=== PATIENT | male | born 1945 | race Caucasian/White ===

== ENCOUNTER 2016-05-19 18:30 | Emergency (ER) | payer MEDICARE, OTHER ==
[~2016-05-19 18:30] MED LIST: Aspirin 325 MG TAB ONE; Nitroglycerin 0.4 MG TAB 1 EACH ONE
[2016-05-19 18:54] LABS: #Basophils 0.1 thou/uL (0.0-0.2); #Eosinphils 0.1 thou/uL (0.0-0.7); #Lymphocytes 1.9 thou/uL (1.20-3.40); #Monocytes 0.7 thou/uL (0.11-0.59); #Neutrophils 7.1 thou/uL (1.40-6.50); %Basophils 0.6 % (0.0-1.0); %Eosinophils 0.6 % (0.0-10.0); %Lymphocytes 19.5 % (21.0-51.0); %Neutrophils 72.3 % (42.0-75.0); Hemoglobin 15.2 g/dL (14.0-18.0); Mean Corpuscular HGB CONC 35.2 g/dL (32.0-36.0); Mean Corpuscular Hemoglobin 31.6 pg (27.0-31.0); Mean Corpuscular Volume 89.7 fl (80.0-94.0); Mean Platelet Volume 8.5 fL (7.4-10.4); Platelet Count 157 thou/uL (130-400); RBC Distribution Width 11.8 % (11.5-14.5); Red Blood Cell (RBC) Count 4.82 mill/uL (4.70-6.10); White Blood Cell (WBC) Count 9.8 thou/uL (4.8-10.8)
[2016-05-19] MEDS ORDERED: Metoprolol Tartrate 5 MG/5 ML VIAL ONE (19:00)
[2016-05-19] MEDS ORDERED: Heparin 5,000 UNITS/ML VIAL ONE (19:01)
[2016-05-19] MEDS ORDERED: Heparin 20,000 units/D5W 500 ML ONE (19:01)
[2016-05-19 19:07] LABS: INR-International Normal Ratio 0.9; Prothrombin Time 12.9 SEC (12.0-14.7)
[2016-05-19 19:08] LABS: PTT 22.7 SEC (22.9-36.1)
[2016-05-19 19:15] LABS: ALT (SGPT) 47 U/L (0-55); AST (SGOT) 39 U/L (5-34); Albumin 4.6 g/dL (3.4-4.8); Alkaline Phosphatase 90 U/L (40-150); Anion Gap 25 mmol/L (10-20); BUN (Urea Nitrogen) 24 mg/dL (8.4-25.7); Bilirubin, Total 0.5 mg/dL (0.2-1.2); CK (CPK) 477 U/L (30-200); Calc. Creatinine Clearance 0 mL/min (70-130); Calcium 10.3 mg/dL (7.8-10.44); Carbon Dioxide 17 mmol/L (23-31); Chloride 102 mmol/L (98-107); Estimated GFR-MDRD 50; Globulin 2.4 g/dL (2.4-3.5); Glucose 258 mg/dL (83-110); Sodium 140 mmol/L (136-145)
--- NOTE | 2016-05-19 19:25 | ERRECORD ---
[facility] EMERGENCY RECORD HPI CHEST PAIN (19:07 LLDO) CHIEF COMPLAINT: Patient presents for evaluation of chest pain, ongoing, Denies automated implantable cardioverter-defibrillator event, Patient presents for evaluation of no cardiac hx. just started oral meds for diabetes. hx htn. no cardiac hx. lots of stress at home. at 1730 was unloading truck and began having left anterior chest pains with rad to left shoulder and some to back. heavy, pressure sensation with pronounced sob sensation. pain was 10. first ntg took it to 6, next ntg took it to 2. ecg shows stemi v1-3. HISTORIAN: History provided by patient, came in by pov. LOCATION: Symptoms are localized. QUALITY: Pain is dull in nature, described as aching, described as a sensation of fullness, described as pressure-like, described as heaviness. SEVERITY: Maximum severity of symptoms severe, Currently symptoms are mild. TIME COURSE: Sudden onset of symptoms, Symptoms are improving, are constant. ASSOCIATED WITH: No associated symptoms, Associated with shortness of breath. EXACERBATED BY: Patient's condition exacerbated by nothing, Patient's condition not exacerbated by movement, Patient's condition not exacerbated by palpation of chest. RELIEVED BY: Patient's condition relieved by sublingual nitroglycerin. RISK FACTORS: Coronary artery disease risk factors, include diabetes, include high cholesterol, include hypertension, Thoracic aortic dissection risk factors, include hypertension, Pulmonary embolism risk factors, not applicable to this patient. HEART SCORE: Patients history is Highly Suspicious (2), Patients ECG has Significant ST - Deviation (2), Patients age is equal to or greater than 65 years (2), Patient has equal to or greater than 3 risk factors or history of atherosclerotic disease (2), Total 8. WELLS CRITERIA FOR PE: Total 0. ROS CONSTITUTIONAL: Negative constitutional review of systems. (19:13 LLDO) EYES: Negative eye review of systems, Historian denies eye pain, denies eye redness, denies eye discharge. (19:15 LLDO) ENT: Negative ears, nose, throat review of systems, Historian denies otalgia, denies rhinorrhea, denies sinus pain, denies sore throat. (19:15 LLDO) CARDIOVASCULAR: Historian reports chest pain, radiation to, Historian reports dyspnea on exertion. (19:13 LLDO) &a-1R&a+25V*p+0X*[id number]*c202B*c15G*c2P*p-0X&a-25V&a+1R Name: Luis F Chapman II : 1945 M70 MedRec: [id number] AcctNum: [id number] Prepared: Sat May 20, 2016 01:25 by Interface Page 1 of 4 pMD [facility] EMERGENCY RECORD RESPIRATORY: Historian reports shortness of breath. (19:13 LLDO) GI: Negative gastrointestinal review of systems, Historian denies abdominal pain, denies constipation, denies diarrhea, denies nausea, denies vomiting. (19:15 LLDO) MUSCULOSKELETAL: Negative musculoskeletal review of systems, Historian denies arthralgias, denies fall, denies injury, denies myalgias. (19:15 LLDO) NEUROLOGIC: Negative neurologic review of systems, Historian denies confusion, denies focal weakness, denies mental status changes, denies sensory changes. (19:15 LLDO) HEMO/LYMPHATIC: Normal hematologic/lymphatic system review, Historian denies abnormal blood clotting, denies gum bleeding, denies petechiae. (19:15 LLDO) ALLERGIC/IMMUNOLOGIC: Normal allergy/immunologic system review, Historian denies eczema, denies environmental allergies, denies food allergies. (19:15 LLDO) PSYCHIATRIC: Historian reports anxiety. (19:13 LLDO) NOTES: All systems reviewed, negative except as described above. (19:13 LLDO) PAST MEDICAL HISTORY (19:14 LLDO) NOTES: Nursing records reviewed, Agree with nursing records, Medication list reviewed. KNOWN ALLERGIES No Known Allergies (Unconfirmed) CURRENT MEDICATIONS No recorded medications VITAL SIGNS VITAL SIGNS: BP: 163/92, Pulse: 85, Resp: 22, Temp: 98.2 (Oral), Pain: 9 (Constant), O2 sat: 100 on Room Air, Time: 05/19/2016 18:32. (18:32 LWAL) BP: 118/60, Pulse: 88, Resp: 22, Pain: 10, O2 sat: 98 on Room Air, Time: 05/19/2016 19:00. (19:00 LWAL) BP: 134/56, Pulse: 98, Resp: 20, Pain: 2, O2 sat: 97 on Room Air, Time: 05/19/2016 19:05. (19:05 LWAL) BP: 120/73, Pulse: 97, Resp: 20, Pain: 2, O2 sat: 98 on Room Air, Time: 05/19/2016 19:15. (19:15 LWAL) BP: 142/89, Pulse: 91, Resp: 20, Pain: 2, O2 sat: 99 on Room Air, Time: 05/19/2016 19:22. (19:22 LWAL) PHYSICAL EXAM CONSTITUTIONAL: Vital Signs Reviewed, Patient afebrile, Pulse normal, Blood pressure, hypertensive, Respiratory rate normal, Patient appears non toxic, Patient appears, in moderate pain distress, Patient alert and oriented to person, place and time, Nursing notes reviewed. (19:13 LLDO) &a-1R&a+25V*p+0X*[id number]*c202B*c15G*c2P*p-0X&a-25V&a+1R Name: Luis F Chapman II : 1945 M70 MedRec: [id number] AcctNum: [id number] Prepared: Sat May 20, 2016 01:25 by Interface Page 2 of 4 pMD [facility] EMERGENCY RECORD HEAD: Head exam normal, Head exam included findings of head atraumatic, normocephalic. (19:15 LLDO) EYES: Eye exam normal, Eye exam included findings of eyelids normal to inspection, Pupils equally round and reactive to light, Extraocular muscles intact. (19:15 LLDO) ENT: ENT exam normal, Ear exam normal, Nose exam normal. (19:15 LLDO) NECK: Neck exam normal, Neck exam included findings of normal range of motion, Trachea midline, no meningeal signs, no tenderness. (19:15 LLDO) RESPIRATORY CHEST: Respiratory and chest exam normal, Respiratory exam included findings of no respiratory distress, Breath sounds clear, Chest exam included findings of chest movement symmetrical, Chest expansion equal. (19:15 LLDO) CARDIOVASCULAR: Cardiovascular assessment normal, Cardiovascular exam included findings of heart rate regular rate and rhythm, Heart sounds normal. (19:15 LLDO) ABDOMEN MALE: Abdominal exam normal, Abdominal exam included findings of abdomen nontender, Bowel sounds normal, no peritoneal signs. (19:15 LLDO) BACK: Back exam normal, Back exam included findings of normal inspection, range of motion normal. (19:15 LLDO) UPPER EXTREMITY: Upper extremity exam normal, Upper extremity exam included findings of inspection normal, Range of motion normal. (19:15 LLDO) LOWER EXTREMITY: Lower extremity exam normal, Lower extremity exam included findings of inspection normal, Range of motion normal. (19:15 LLDO) NEURO: Neuro exam normal, Neuro exam findings include patient oriented to person, place and time, Speech normal, Miesha coma scale 15. (19:15 LLDO) SKIN: very mildly diaphoretic, but better than on arrival. (19:13 LLDO) PSYCHIATRIC: Psychiatric exam normal, Psychiatric exam included findings of patient oriented to person place and time, Normal affect, Judgment normal. (19:15 LLDO) MEDICATION ADMINISTRATION SUMMARY Drug Name: Nitroglycerin Microdrip IV Set, Dose Ordered: 10 mcg/min, Route: IV Fluid Infusion, Status: Ordered, Time: 19:04 05/19/2016, Drug Name: *Lopressor intravenous, Dose Ordered: 5 mg, Route: IV Push, Status: Given, Time: 19:15 05/19/2016, Drug Name: heparin, porcine (PF) injection, Dose Ordered: 1,000 units/hr, Route: IV Fluid Infusion, Status: Given, Time: 19:13 05/19/2016, Drug Name: heparin, porcine (PF) injection, Dose Ordered: 5000 units, Route: IV Push, Status: Given, Time: 19:07 05/19/2016, Drug Name: *nitroglycerin sublingual, Dose Ordered: 1 tab(s), Route: Oral, Status: Given, Time: 18:55 05/19/2016, &a-1R&a+25V*p+0X*[id number]*c202B*c15G*c2P*p-0X&a-25V&a+1R Name: Ari Luis Faryan Dao II : 1945 M70 MedRec: [id number] AcctNum: [id number] Prepared: Sat May 20, 2016 01:25 by Interface Page 3 of 4 pMD [facility] EMERGENCY RECORD Drug Name: *nitroglycerin sublingual, Dose Ordered: 1 tab(s), Route: Oral, Status: Given, Time: 18:43 05/19/2016, Drug Name: aspirin oral, Dose Ordered: 325 mg, Route: Oral, Status: Given, Time: 18:43 05/19/2016, *Additional information available in notes, Detailed record available in Medication Service section. DOCTOR NOTES (19:15 LLDO) TEXT: spoke to dr haynes, hotel server, who said not to lyse but give nitro and Lopressor and fly pt. pt accepted to ed by dr. latif (sp?). PROBLEM LIST No recorded problems DIAGNOSIS FINAL: PRIMARY: ST ELEVATION MYOCARDIAL INFARCT. (19:18 LLDO) PRIMARY: ST ELEVATION MYOCARDIAL INFARCT, ADDITIONAL: Hypertension, Type 2 Diabetes mellitus (NIDDM) - controlled. (19:20 LLDO) PRESCRIPTION No recorded prescriptions DISPOSITION PATIENT: Disposition Type: Transfer, Disposition: Transfer to [facility]. (19:18 LLDO) Disposition Transport: Helicopter, Condition: Guarded, Patient left the department. (19:27 LWAL) [place]: LLDO=MD Cher, Karan LWAL=[place], [facility] &a-1R&a+25V*p+0X*x1125X*c202B*c15G*c2P*p-0X&a-25V&a+1R Name: Luis F Chapman RAYMUNDO : 1945 M70 MedRec: [id number] AcctNum: [id number] Prepared: Isma May 20, 2016 01:25 by Interface Page 4 of 4 pMD MTDD
--- NOTE | 2016-05-19 19:31 | PICIS ---
[facility] EMERGENCY RECORD COMMUNICATIONS COMMUNICATIONS: Other notification, Name LAI, contacted at [facility], Reason for notification REQUEST TO TRANSFER, AUTO LAUNCH PHI. (18:46 EROG) Other notification, Name DR. LANDRUM, contacted at [facility], Reason for notification DOC TO DOC FOR ACCEPTANCE. (18:51 EROG) Other notification, Name DR. HENSLEY, contacted at [facility], Reason for notification CARDIOLOGY CONSULT. (18:53 EROG) Nursing production support supervisor, contacted at [facility], Person contacted [place], Reason for notification RECEIVED AD ACCEPTANCE FOR TRANSFER. (18:51 EROG) TRIAGE (SunMay 19, 2016 18:35 LWAL) PATIENT: NAME: Luis F Chapman II, AGE: 70, GENDER: male, : Sun1945, TIME OF GREET: SunMay 19, 2016 18:30, PREFERRED LANGUAGE: British, RACE: WHITE, ETHNICITY: Not or , ECODE BILLING MAP: [facility], SSN: [id number], Zip Code: [address], KG WEIGHT: 101.15, PHONE: , , , PERSON ID: [id number], PCP: GLEN AGUIRRE. (SunMay 19, 2016 18:35 LWAL) TRIAGE NOTES: SOB, CHEST PAIN. (SunMay 19, 2016 18:35 LWAL) COMPLAINT: SOB,CHEST PAIN. (SunMay 19, 2016 18:35 LWAL) ADMISSION: URGENCY: 3 Urgent, ADMISSION SOURCE: Home, TRANSPORT: CAR, BED: ED -05. (SunMay 19, 2016 18:35 LWAL) PAIN: Patient complains of pain described as, crushing, on a scale 0-10 patient rates pain as 10, Location middle of chest, Pain is constant, Notes: increased shortness of breath. (18:35 LWAL) SIRS SCORING: Heart Rate 55-109 (0), Temp range 96.8-101.1 (0), respiratory rate 12-24 (0), Mental Status altered: no (0), Total SIRS Score 0, Infection or Suspected Infection: No. (18:35 LWAL) TRIAGE SCREENING: Patient denies suicidal ideation, Patient denies presence of domestic violence. (18:35 LWAL) PROVIDERS: TRIAGE NURSE: Sonja White RN. (SunMay 19, 2016 18:35 LWAL) VITAL SIGNS: BP 163/92, Pulse 85, Resp 22, Temp 98.2, (Oral), Pain 9, (Constant), O2 Sat 100, on Room Air, Time 05/19/2016 18:32. (18:32 LWAL) KNOWN ALLERGIES No Known Allergies (Unconfirmed) CURRENT MEDICATIONS No recorded medications VITAL SIGNS VITAL SIGNS: BP: 163/92, Pulse: 85, Resp: 22, Temp: 98.2 (Oral), Pain: 9 (Constant), O2 sat: 100 on Room Air, Time: 05/19/2016 18:32. &a-1R&a+25V*p+0X*q2956G*c202B*c15G*c2P*p-0X&a-25V&a+1R Name: Luis F Chapman II : 1945 M70 MedRec: [id number] AcctNum: [id number] Prepared: Sat May 20, 2016 01:30 by Interface Page 1 of 12 pMD [facility] EMERGENCY RECORD (18:32 LWAL) BP: 118/60, Pulse: 88, Resp: 22, Pain: 10, O2 sat: 98 on Room Air, Time: 05/19/2016 19:00. (19:00 LWAL) BP: 134/56, Pulse: 98, Resp: 20, Pain: 2, O2 sat: 97 on Room Air, Time: 05/19/2016 19:05. (19:05 LWAL) BP: 120/73, Pulse: 97, Resp: 20, Pain: 2, O2 sat: 98 on Room Air, Time: 05/19/2016 19:15. (19:15 LWAL) BP: 142/89, Pulse: 91, Resp: 20, Pain: 2, O2 sat: 99 on Room Air, Time: 05/19/2016 19:22. (19:22 LWAL) NURSING ASSESSMENT: CARDIOVASCULAR (18:35 LWAL) CONSTITUTIONAL: Patient arrives ambulatory, Gait steady, History obtained from patient, Patient appears, in distress due to pain, in respiratory distress, chest pain, Patient cooperative, Oriented to person, place and time, Skin warm, Skin, clammy, Skin, pale in color, Mucous membranes pink, Mucous membranes moist, Patient is well-groomed, Patient complains of chest pain, sob, [place] at 1730 [place] Pt has had a stressful day and week. Pt is pale, clammy, and unable to take a deep breath. PAIN: cramping pain, crushing pain, midsternal, on a scale 0-10 patient rates pain as 10. CARDIOVASCULAR: Cardiovascular assessment findings include heart rate normal. RESPIRATORY/CHEST: Breath sounds clear, Respiratory assessment findings include respiratory effort, labored, shallow, Respirations regular, Conversing normally, Neck and chest exam findings include trachea midline, Chest expansion equal, Chest movement symmetrical. NOTES: Patient tolerated procedure well. SAFETY: Side rails up, Cart/Stretcher in lowest position, Call light within reach, Hospital ID band on. NURSING PROCEDURE: BEDSIDE RADIOLOGY (19:00 [facility]) PATIENT IDENTIFIER: Patient actively involved in identification process, Patient's identity verified by patient stating name, Patient's identity verified by patient stating date. BEDSIDE RADIOLOGY: Portable chest x-ray performed. NOTES: Patient tolerated procedure well. SAFETY: Side rails up, Cart/Stretcher in lowest position, Family at bedside, Call light within reach, Hospital ID band on. NURSING PROCEDURE: UTILITY WORKER (18:37 LWAL) PATIENT IDENTIFIER: Patient actively involved in identification process, Patient's identity verified by patient stating name, Patient's identity verified by hospital ID bracelet. UTILITY WORKER: Cardiac monitoring indicated for complaint of chest pain, Patient placed on night monitor, Patient placed on &a-1R&a+25V*p+0X*j3174A*c202B*c15G*c2P*p-0X&a-25V&a+1R Name: Luis F Chapman RAYMUNDO : 1945 M70 MedRec: [id number] AcctNum: [id number] Prepared: Sat May 20, 2016 01:30 by Interface Page 2 of 12 pMD [facility] EMERGENCY RECORD non-invasive blood pressure monitor, Patient placed on continuous pulse oximetry, Adult/pediatric oxisensor applied. NOTES: Patient tolerated procedure well. SAFETY: Side rails up, Cart/Stretcher in lowest position, Hospital ID band on. NURSING PROCEDURE: EKG CHART (18:36 LWAL) PATIENT IDENTIFIER: Patient actively involved in identification process, Patient's identity verified by patient stating name, Patient's identity verified by hospital ID bracelet. EKG: EKG indicated for complaint of chest pain, 12 lead EKG performed on the left chest, done by GRETCHEN ALONZO, first EKG. FOLLOW-UP: After procedure, EKG for interpretation given to Dr. CALIX. SAFETY: Side rails up, Cart/Stretcher in lowest position, Family at bedside, Call light within reach, Hospital ID band on. NURSING PROCEDURE: IV PATIENT IDENITIFIER: Patient actively involved in identification process, Patient's identity verified by patient stating name, Patient's identity verified by hospital ID bracelet. (18:38 LWAL) IV SITE 1: IV therapy indicated for hydration, IV therapy indicated for medication administration, IV established, to the right antecubital, using an 18 gauge catheter, Saline lock established, Labs drawn at time of placement, labeled in the presence of the patient and sent to lab. (18:38 LWAL) FOLLOW-UP SITE 1: After procedure, no drainage at IV site, After procedure, no swelling at IV site, After procedure, no redness at IV site, Notes: IV PATENT AT TIME OF TRANSFER. NO S/SOF INFILTRATION NOTED. (19:23 LWAL) NURSING PROCEDURE: TRANSFER (19:23 LWAL) TRANSFER: Reason for transfer need for specialized care, Diagnosis: ACUTE STEMI, Accepting institution: [facility], Accepting physician: DR.GRAY OLIVER- CARDIO, Referring physician: YOGI, Transported by helicopter, [facility], Report called to receiving facility, RON, Provided opportunity to answer questions, Summary of Care printed, Copy of patient record prepared for receiving facility, Patient consent for transfer signed, Family member contacted, SPOUSE BY PT. BELONGINGS: Belongings remain with patient, Valuables remain with patient. EQUIPMENT WITH PATIENT: Equipment with patient at time of transfer night monitor, Saline lock intact and patent at time of transfer. NOTES: Patient tolerated procedure well. SAFETY: Side rails up, Cart/Stretcher in lowest position, Call light within reach, Hospital ID band on. ORDER DETAILS &a-1R&a+25V*p+0X*m1859F*c202B*c15G*c2P*p-0X&a-25V&a+1R Name: Luis F Chapman II : 1945 M70 MedRec: [id number] AcctNum: [id number] Prepared: [facility] [[email or web address] May 20, 2016 01:30 by Interface Page 3 of 12 D [facility] EMERGENCY RECORD Order Name: B type Natriuretic Peptide, Status: Active, Time: 18:46 05/19/2016, User: KATI, - Ordered for: MD Calix Lloyd, - Entered by: MD Calix Lloyd - SunMay 19, 2016 18:46, - Quantity: 1, Order Name: UTILITY WORKER ED, Status: Done, Time: 18:55 05/19/2016, User: BANG, - Ordered for: MD Calix Lloyd, - Entered by: MD Calix Lloyd - SunMay 19, 2016 18:46, - Quantity: 1, Order Name: Cardiac Profile w/CKMB & Troponin - I, Status: Active, Time: 18:46 05/19/2016, User: KATI, - Ordered for: MD Calix Lloyd, - Entered by: MD Calix Lloyd - SunMay 19, 2016 18:46, - Quantity: 1, Order Name: CBC with Differential, Status: Active, Time: 18:46 05/19/2016, User: LL, - Ordered for: MD Calix Lloyd, - Entered by: MD Calix Lloyd - SunMay 19, 2016 18:46, - Quantity: 1, Order Name: CK (CPK), Status: Active, Time: 18:46 05/19/2016, User: KATI, - Ordered for: MD Calix Lloyd, - Entered by: MD Calix Lloyd - SunMay 19, 2016 18:46, - Quantity: 1, Order Name: Comprehensive Metabolic Panel, Status: Active, Time: 18:46 05/19/2016, User: LL, - Ordered for: MD Calix Lloyd, - Entered by: MD Calix Lloyd - SunMay 19, 2016 18:46, - Quantity: 1, Order Name: EKG 12 Lead in Emergency Room, Status: Active, Time: 18:46 05/19/2016, User: LLDO, - Ordered for: MD Calix Lloyd, - Entered by: MD Calix Lloyd - SunMay 19, 2016 18:46, - Quantity: 1, Order Name: ERRT Oxygen Usage ER, Status: Active, Time: 18:46 05/19/2016, User: LLDO, - Ordered for: MD Calix Lloyd, - Entered by: MD Calix Lloyd - Mounika May 19, 2016 18:46, - Quantity: 1, Order Name: ERRT Pulse Oximeter ER, Status: Active, Time: 18:46 05/19/2016, User: LLDO, - Ordered for: MD Calix Lloyd, - Entered by: MD Calix Lloyd - SunMay 19, 2016 18:46, - Quantity: 1, Order Name: Magnesium, Status: Active, Time: 18:46 05/19/2016, User: LLDO, - Ordered for: MD Calix Lloyd, - Entered by: MD Calix Lloyd - SunMay 19, 2016 18:46, &a-1R&a+25V*p+0X*b7957G*c202B*c15G*c2P*p-0X&a-25V&a+1R Name: Luis F Chapman II : 1945 M70 MedRec: [id number] AcctNum: [id number] Prepared: [facility] [[email or web address] May 20, 2016 01:30 by Interface Page 4 of 12 D [facility] EMERGENCY RECORD - Quantity: 1, Order Name: Protime with INR, Status: Active, Time: 18:46 05/19/2016, User: LLDO, - Ordered for: MD Calix Lloyd, - Entered by: MD Calix Lloyd - SunMay 19, 2016 18:46, - Quantity: 1, Order Name: PTT, Status: Active, Time: 18:46 05/19/2016, User: LLDO, - Ordered for: MD Calix Lloyd, - Entered by: MD Calix Lloyd - SunMay 19, 2016 18:46, - Quantity: 1, Order Name: SALINE LOCK, Status: Done, Time: 18:55 05/19/2016, User: SFRE, - Ordered for: MD Calix Lloyd, - Entered by: MD Calix Lloyd - SunMay 19, 2016 18:46, - Quantity: 1, Order Name: XR Chest 1 View Portable, Status: Active, Time: 18:46 05/19/2016, User: KATI, - Ordered for: MD Calix Lloyd, - Entered by: MD Calix Lloyd - SunMay 19, 2016 18:46, - Quantity: 1. MEDICATION ADMINISTRATION SUMMARY Drug Name: Nitroglycerin Microdrip IV Set, Dose Ordered: 10 mcg/min, Route: IV Fluid Infusion, Status: Ordered, Time: 19:04 05/19/2016, Drug Name: *Lopressor intravenous, Dose Ordered: 5 mg, Route: IV Push, Status: Given, Time: 19:15 05/19/2016, Drug Name: heparin, porcine (PF) injection, Dose Ordered: 1,000 units/hr, Route: IV Fluid Infusion, Status: Given, Time: 19:13 05/19/2016, Drug Name: heparin, porcine (PF) injection, Dose Ordered: 5000 units, Route: IV Push, Status: Given, Time: 19:07 05/19/2016, Drug Name: *nitroglycerin sublingual, Dose Ordered: 1 tab(s), Route: Oral, Status: Given, Time: 18:55 05/19/2016, Drug Name: *nitroglycerin sublingual, Dose Ordered: 1 tab(s), Route: Oral, Status: Given, Time: 18:43 05/19/2016, Drug Name: aspirin oral, Dose Ordered: 325 mg, Route: Oral, Status: Given, Time: 18:43 05/19/2016, *Additional information available in notes, Detailed record available in Medication Service section. MEDICATION SERVICE aspirin oral: Order: aspirin oral (aspirin) - Dose: 325 mg : Oral Schedule: Now Ordered by: Karan Calix MD Entered by: Karan Calix MD SunMay 19, 2016 19:03 Documented as given by: Sonja White RN SunMay 19, 2016 18:43 Patient, Medication, Dose, Route and Time verified prior to administration. Amount given: 325 mg, Site: Medication administered P.O., Correct &a-1R&a+25V*p+0X*w8853L*c202B*c15G*c2P*p-0X&a-25V&a+1R Name: Luis F Chapman II : 1945 M70 MedRec: [id number] AcctNum: [id number] Prepared: [facility] [[email or web address] May 20, 2016 01:30 by Interface Page 5 of 12 pMD [facility] EMERGENCY RECORD patient, time, route, dose and medication confirmed prior to administration, Patient advised of actions and side-effects prior to administration, Allergies confirmed and medications reviewed prior to administration, Patient in position of comfort, Side rails up, Cart in lowest position. heparin, porcine (PF) injection: Order: heparin, porcine (PF) injection (heparin sodium,porcine/preservative free) - Dose: 5000 units : IV Push Schedule: Now Ordered by: Karan Calix MD Entered by: Karan Calix MD SunMay 19, 2016 19:02 Documented as given by: Sonja White RN SunMay 19, 2016 19:07 Patient, Medication, Dose, Route and Time verified prior to administration. Amount given: 5000 units, IV SITE #1 IVP, initial medication, Slowly, Catheter placement confirmed via flush prior to administration, IV site without signs or symptoms of infiltration during medication administration, No swelling during administration, No drainage during administration, IV flushed after administration, Correct patient, time, route, dose and medication confirmed prior to administration, Patient advised of actions and side-effects prior to administration, Allergies confirmed and medications reviewed prior to administration, Patient in position of comfort, Side rails up, Cart in lowest position. heparin, porcine (PF) injection: Order: heparin, porcine (PF) injection (heparin sodium,porcine/preservative free) - Dose: 1,000 units/hr : IV Fluid Infusion Schedule: Now Ordered by: Karan Calix MD Entered by: Karan Calix MD SunMay 19, 2016 19:02 Documented as given by: Sonja White RN SunMay 19, 2016 19:13 Patient, Medication, Dose, Route and Time verified prior to administration. Amount given: 25 ml/hr, IV SITE #1 IVPB or drip, initial infusion, Catheter placement confirmed via flush prior to administration, IV site without signs or symptoms of infiltration during medication administration, No swelling during administration, No drainage during administration, IV flushed after administration, Correct patient, time, route, dose and medication confirmed prior to administration, Patient advised of actions and side-effects prior to administration, Allergies confirmed and medications reviewed prior to administration, Patient in position of comfort, Side rails up, Cart in lowest position, Heparin maintenance bolus 1000 units/hr or 25ml/hr. : Follow Up : No signs or symptoms of allergic reaction noted, _IV SITE #1:_, IV fluid infusion continued upon transfer from emergency department, on SunMay 19, 2016 19:23, 10 minutes, ., Advised not to ambulate without assistance, Patient in position of comfort, Side rails up, Cart in lowest position. (19:23 LWAL) Lopressor intravenous: Order: Lopressor intravenous (metoprolol tartrate) - Dose: 5 mg : IV Push &a-1R&a+25V*p+0X*g4704C*c202B*c15G*c2P*p-0X&a-25V&a+1R Name: Luis F Chapman II : 1945 M70 MedRec: [id number] AcctNum: [id number] Prepared: [facility] [[email or web address] May 20, 2016 01:30 by Interface Page 6 of 12 [facility] EMERGENCY RECORD Schedule: Now Notes: total 3 doses at 5 min intervals Ordered by: Karan Calix MD Entered by: Karan Calix MD SunMay 19, 2016 19:01 Documented as given by: Sonja White RN SunMay 19, 2016 19:15 Patient, Medication, Dose, Route and Time verified prior to administration. Amount given: 5 mg, IV SITE #1 IVP, subsequent different medication, Slowly, Catheter placement confirmed via flush prior to administration, IV site without signs or symptoms of infiltration during medication administration, No swelling during administration, No drainage during administration, IV flushed after administration, Correct patient, time, route, dose and medication confirmed prior to administration, Patient advised of actions and side-effects prior to administration, Allergies confirmed and medications reviewed prior to administration, Patient in position of comfort, Side rails up, Cart in lowest position. Nitroglycerin Microdrip IV Set: Order: Nitroglycerin Microdrip IV Set (IV administration set) - Dose: 10 mcg/min : IV Fluid Infusion Schedule: Now Ordered by: Karan Calix MD Entered by: Karan Calix MD SunMay 19, 2016 19:04 . nitroglycerin sublingual: Order: nitroglycerin sublingual (nitroglycerin) - Dose: 1 tab(s) : Oral Schedule: Every 5 minutes Repeat: 3 DOSES Notes: UNTIL PAIN GONE OR SBP DROPS BELOW 105 Ordered by: Karan Calix MD Entered by: Karan Calix MD SunMay 19, 2016 19:04 Documented as given by: Sonja White RN SunMay 19, 2016 18:43 Patient, Medication, Dose, Route and Time verified prior to administration. Amount given: 0.4 mg, Site: Medication administered S.L., Correct patient, time, route, dose and medication confirmed prior to administration, Patient advised of actions and side-effects prior to administration, Allergies confirmed and medications reviewed prior to administration, Patient in position of comfort, Side rails up, Cart in lowest position. nitroglycerin sublingual: Order: nitroglycerin sublingual (nitroglycerin) - Dose: 1 tab(s) : Oral Schedule: Every 5 minutes Repeat: 3 DOSES Notes: UNTIL PAIN GONE OR SBP DROPS BELOW 105 Ordered by: Karan Calix MD Entered by: Sonja White RN SunMay 19, 2016 19:36 Documented as given by: Sonja White RN SunMay 19, 2016 18:55 Patient, Medication, Dose, Route and Time verified prior to administration. Amount given: 0.4 mg, Site: Medication administered S.L., Correct patient, time, route, dose and medication confirmed prior to administration, Patient advised of actions and side-effects prior to &a-1R&a+25V*p+0X*n7626C*c202B*c15G*c2P*p-0X&a-25V&a+1R Name: Luis F Chapman RAYMUNDO : 1945 M70 MedRec: [id number] AcctNum: [id number] Prepared: Sat May 20, 2016 01:30 by Interface Page 7 of 12 pMD [facility] EMERGENCY RECORD administration, Allergies confirmed and medications reviewed prior to administration, Patient in position of comfort, Side rails up, Cart in lowest position. HPI CHEST PAIN (19:07 LLDO) CHIEF COMPLAINT: Patient presents for evaluation of chest pain, ongoing, Denies automated implantable cardioverter-defibrillator event, Patient presents for evaluation of no cardiac hx. just started oral meds for diabetes. hx htn. no cardiac hx. lots of stress at home. at 1730 was unloading truck and began having left anterior chest pains with rad to left shoulder and some to back. heavy, pressure sensation with pronounced sob sensation. pain was 10. first ntg took it to 6, next ntg took it to 2. ecg shows stemi v1-3. HISTORIAN: History provided by patient, came in by pov. LOCATION: Symptoms are localized. QUALITY: Pain is dull in nature, described as aching, described as a sensation of fullness, described as pressure-like, described as heaviness. SEVERITY: Maximum severity of symptoms severe, Currently symptoms are mild. TIME COURSE: Sudden onset of symptoms, Symptoms are improving, are constant. ASSOCIATED WITH: No associated symptoms, Associated with shortness of breath. EXACERBATED BY: Patient's condition exacerbated by nothing, Patient's condition not exacerbated by movement, Patient's condition not exacerbated by palpation of chest. RELIEVED BY: Patient's condition relieved by sublingual nitroglycerin. RISK FACTORS: Coronary artery disease risk factors, include diabetes, include high cholesterol, include hypertension, Thoracic aortic dissection risk factors, include hypertension, Pulmonary embolism risk factors, not applicable to this patient. HEART SCORE: Patients history is Highly Suspicious (2), Patients ECG has Significant ST - Deviation (2), Patients age is equal to or greater than 65 years (2), Patient has equal to or greater than 3 risk factors or history of atherosclerotic disease (2), Total 8. WELLS CRITERIA FOR PE: Total 0. ROS CONSTITUTIONAL: Negative constitutional review of systems. (19:13 LLDO) EYES: Negative eye review of systems, Historian denies eye pain, denies eye redness, denies eye discharge. (19:15 LLDO) ENT: Negative ears, nose, throat review of systems, Historian denies otalgia, denies rhinorrhea, denies sinus pain, denies sore &a-1R&a+25V*p+0X*m1700H*c202B*c15G*c2P*p-0X&a-25V&a+1R Name: Luis F Chapman II : 1945 M70 MedRec: [id number] AcctNum: [id number] Prepared: Isma May 20, 2016 01:30 by Interface Page 8 of 12 pMD [facility] EMERGENCY RECORD throat. (19:15 LLDO) CARDIOVASCULAR: Historian reports chest pain, radiation to, Historian reports dyspnea on exertion. (19:13 LLDO) RESPIRATORY: Historian reports shortness of breath. (19:13 LLDO) GI: Negative gastrointestinal review of systems, Historian denies abdominal pain, denies constipation, denies diarrhea, denies nausea, denies vomiting. (19:15 LLDO) MUSCULOSKELETAL: Negative musculoskeletal review of systems, Historian denies arthralgias, denies fall, denies injury, denies myalgias. (19:15 LLDO) NEUROLOGIC: Negative neurologic review of systems, Historian denies confusion, denies focal weakness, denies mental status changes, denies sensory changes. (19:15 LLDO) HEMO/LYMPHATIC: Normal hematologic/lymphatic system review, Historian denies abnormal blood clotting, denies gum bleeding, denies petechiae. (19:15 LLDO) ALLERGIC/IMMUNOLOGIC: Normal allergy/immunologic system review, Historian denies eczema, denies environmental allergies, denies food allergies. (19:15 LLDO) PSYCHIATRIC: Historian reports anxiety. (19:13 LLDO) NOTES: All systems reviewed, negative except as described above. (19:13 LLDO) PAST MEDICAL HISTORY (19:14 LLDO) NOTES: Nursing records reviewed, Agree with nursing records, Medication list reviewed. PHYSICAL EXAM CONSTITUTIONAL: Vital Signs Reviewed, Patient afebrile, Pulse normal, Blood pressure, hypertensive, Respiratory rate normal, Patient appears non toxic, Patient appears, in moderate pain distress, Patient alert and oriented to person, place and time, Nursing notes reviewed. (19:13 LLDO) HEAD: Head exam normal, Head exam included findings of head atraumatic, normocephalic. (19:15 LLDO) EYES: Eye exam normal, Eye exam included findings of eyelids normal to inspection, Pupils equally round and reactive to light, Extraocular muscles intact. (19:15 LLDO) ENT: ENT exam normal, Ear exam normal, Nose exam normal. (19:15 LLDO) NECK: Neck exam normal, Neck exam included findings of normal range of motion, Trachea midline, no meningeal signs, no tenderness. (19:15 LLDO) RESPIRATORY CHEST: Respiratory and chest exam normal, Respiratory exam included findings of no respiratory distress, Breath sounds clear, Chest exam included findings of chest movement symmetrical, Chest expansion equal. (19:15 LLDO) CARDIOVASCULAR: Cardiovascular assessment normal, Cardiovascular &a-1R&a+25V*p+0X*t7866F*c202B*c15G*c2P*p-0X&a-25V&a+1R Name: Luis F Chapman II : 1945 M70 MedRec: [id number] AcctNum: [id number] Prepared: Sat May 20, 2016 01:30 by Interface Page 9 of 12 pMD [facility] EMERGENCY RECORD exam included findings of heart rate regular rate and rhythm, Heart sounds normal. (19:15 LLDO) ABDOMEN MALE: Abdominal exam normal, Abdominal exam included findings of abdomen nontender, Bowel sounds normal, no peritoneal signs. (19:15 LLDO) BACK: Back exam normal, Back exam included findings of normal inspection, range of motion normal. (19:15 LLDO) UPPER EXTREMITY: Upper extremity exam normal, Upper extremity exam included findings of inspection normal, Range of motion normal. (19:15 LLDO) LOWER EXTREMITY: Lower extremity exam normal, Lower extremity exam included findings of inspection normal, Range of motion normal. (19:15 LLDO) NEURO: Neuro exam normal, Neuro exam findings include patient oriented to person, place and time, Speech normal, Miesha coma scale 15. (19:15 LLDO) SKIN: very mildly diaphoretic, but better than on arrival. (19:13 LLDO) PSYCHIATRIC: Psychiatric exam normal, Psychiatric exam included findings of patient oriented to person place and time, Normal affect, Judgment normal. (19:15 LLDO) EVENTS TRANSFER: Triage to Emergency Main ED -05. (18:35 LWAL) Emergency Main ED -05 to -. (18:52 EROG) Removed from Emergency Main ED -01. 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 pt accepted to ed by dr. latif (sp?). PROBLEM LIST No recorded problems DIAGNOSIS FINAL: PRIMARY: ST ELEVATION MYOCARDIAL INFARCT. (19:18 LLDO) PRIMARY: ST ELEVATION MYOCARDIAL INFARCT, ADDITIONAL: Hypertension, Type 2 Diabetes mellitus (NIDDM) - controlled. (19:20 LLDO) DISPOSITION PATIENT: Disposition Type: Transfer, Disposition: Transfer to [facility]. (19:18 LLDO) Disposition Transport: Helicopter, Condition: Guarded, Patient left the department. (19:27 LWAL) PRESCRIPTION No recorded prescriptions &a-1R&a+25V*p+0X*[id number]*c202B*c15G*c2P*p-0X&a-25V&a+1R Name: Luis F Chapman II : 1945 M70 MedRec: [id number] AcctNum: [id number] Prepared: [facility] [[email or web address]] May 20, 2016 01:30 by Interface Page 10 of 12 pMD [facility] EMERGENCY RECORD IMAGING EGK: Image captured from scanner. (18:54 SFRE) *MEMORANDUM OF TRANSFER: Image captured from scanner. (19:10 EROG) EMS TRANSPORT ORDERS: Image captured from scanner. (19:10 EROG) CONSENTS: Image captured from scanner. (19:10 EROG) TRANSFER RECORD (NON-FDC): Image captured from scanner. (19:23 EROG) Page 2 added. Image captured from scanner. (19:24 EROG) *SUPPLY CHARGE SHEET: Image captured from scanner. (20:10 LWAL) STEMI PACKET: Image captured from scanner. (20:11 LWAL) ADMIN DIGITAL SIGNATURE: MD Yogi, Karan. (19:18 LLDO) [place] Lemus, Floyd. (19:26 EROG) [place] White, Sonja. (21:59 LWAL) MD Calix Lloyd. (Sat May 20, 2016 01:23 LLDO) RESULTS (19:19 LWAL) LABORATORY: Magnesium Collection DT: SunMay 19, 2016 18:58, Magnesium 2.0 mg/dL, Range (1.6-2.6). CK (CPK) Collection DT: SunMay 19, 2016 18:58, *CK (CPK) 477 - H U/L, Range (30-200). Comprehensive Metabolic Panel Collection DT: SunMay 19, 2016 18:58, Sodium 140 mmol/L, Range (136-145), Potassium 4.0 mmol/L, Range (3.5-5.1), Chloride 102 mmol/L, Range (98-107), *Carbon Dioxide 17 - L mmol/L, Range (23-31), *Anion Gap 25 - H mmol/L, Range (10-20), BUN (Urea Nitrogen) 24 mg/dL, Range (8.4-25.7), *Creatinine 1.40 - H mg/dL, Range (0.7-1.3), Estimated GFR-MDRD 50 , Reference Range for Estimated GFR: Greater than 90, mL/min/1.73 m2 NOTE: The MDRD equation has not been validated for use, with the elderly (over 70 years of age), women, patients with, serious comorbid condition or persons with extremes of body size, muscle, mass, or nutritional status. , *Glucose 258 - H mg/dL, Range (83-110), Calcium 10.3 mg/dL, Range (7.8-10.44), Bilirubin, Total 0.5 mg/dL, Range (0.2-1.2), Protein, Total 7.0 g/dL, Range (5.8-8.1), NOTE: Plasma values are generally 0.3 to 0.5 g/dL higher than serum values, due to the presence of fibrinogen. , Albumin 4.6 g/dL, Range (3.4-4.8), Globulin 2.4 g/dL, Range (2.4-3.5), Alb/Glob Ratio 1.9 g/dL, Range (1.2-2.2), Alkaline Phosphatase 90 U/L, Range (40-150), &a-1R&a+25V*p+0X*z2844K*c202B*c15G*c2P*p-0X&a-25V&a+1R Name: Luis F Chapman RAYMUNDO : 1945 M70 MedRec: [id number] AcctNum: [id number] Prepared: Sat May 20, 2016 01:30 by Interface Page 11 of 12 pMD [facility] EMERGENCY RECORD *AST (SGOT) 39 - H U/L, Range (5-34), ALT (SGPT) 47 U/L, Range (0-55). CBC with Differential Collection DT: SunMay 19, 2016 18:58, White Blood Cell (WBC) Count 9.8 thou/uL, Range (4.8-10.8), Red Blood Cell (RBC) Count 4.82 mill/uL, Range (4.70-6.10), Hemoglobin 15.2 g/dL, Range (14.0-18.0), Hematocrit 43.3 %, Range (42.0-52.0), Mean Corpuscular Volume 89.7 fl, Range (80.0-94.0), *Mean Corpuscular Hemoglobin 31.6 - H pg, Range (27.0-31.0), Mean Corpuscular HGB CONC 35.2 g/dL, Range (32.0-36.0), RBC Distribution Width 11.8 %, Range (11.5-14.5), Platelet Count 157 thou/uL, Range (130-400), Mean Platelet Volume 8.5 fL, Range (7.4-10.4), %Neutrophils 72.3 %, Range (42.0-75.0), *%Lymphocytes 19.5 - L %, Range (21.0-51.0), %Monocytes 7.0 %, Range (0.0-10.0), %Eosinophils 0.6 %, Range (0.0-10.0), %Basophils 0.6 %, Range (0.0-1.0), *#Neutrophils 7.1 - H thou/uL, Range (1.40-6.50), #Lymphocytes 1.9 thou/uL, Range (1.20-3.40), *#Monocytes 0.7 - H thou/uL, Range (0.11-0.59), #Eosinphils 0.1 thou/uL, Range (0.0-0.7), #Basophils 0.1 thou/uL, Range (0.0-0.2). PTT Collection DT: SunMay 19, 2016 19:00, See comment below , Anticoagulant? NONE Medical Necessity SUSPECT COAGULOPATHY , *PTT 22.7 - L SEC, Range (22.9-36.1). Protime with INR Collection DT: SunMay 19, 2016 19:00, See comment below , Anticoagulant? NONE Medical Necessity SUSPECT COAGULOPATHY , Prothrombin Time 12.9 SEC, Range (12.0-14.7), INR-International Normal Ratio 0.9 , ATTENTION: READ CAREFULLY , The, recommended therapeutic ranges for oral anticoagulant treatments are: , , Low Intensity: 1.5 - 2.0 Moderate Intensity: 2.0, - 3.0 High Intensity (1): 2.5 - 3.5 High, Intensity (2): 3.0 - 4.0 CRITICAL: >, 4.0 . Henley: ASHLEY=CLINTON Victor, Chelo CHAVARRIA=[place] Lemus, Floyd LL=MD Yogi, Karan BONDAL=[place] White, Sonja SFRE=CLINTON Ybarra, Mecca &a-1R&a+25V*p+0X*u0175Q*c202B*c15G*c2P*p-0X&a-25V&a+1R Name: Luis F Chapman II : 1945 M70 MedRec: [id number] AcctNum: [id number] Prepared: Isma May 20, 2016 01:30 by Interface Page 12 of 12 pMD MTDD
[2016-05-19 19:35] LABS: CKMB 10.2 ng/mL (0-6.6); Troponin I 0.026 ng/mL (< 0.028)
[2016-05-19 19:36] LABS: Critical Call CKMBM OUTREACH-CB MKR ADD
--- NOTE | 2016-05-19 20:44 | RAD ---
PORTABLE UPRIGHT FRONTAL CHEST RADIOGRAPH 05/19/16 COMPARISON: None. HISTORY: Acute myocardial infarction. FINDINGS: Body habitus and lordotic position limit detailed assessment. No focal consolidation. No alveolar edema or large volume pleural fluid. IMPRESSION: Lordotic positioning. No focal consolidation. POS: ALVINA
== END 2016-05-19 19:21 | disposition short-term general hospital (02) ==
LOC: MADERS 18:30
DX: I21.3 ST elevation (STEMI) myocardial infarction of unspecified site (principal); I10 Essential (primary) hypertension; E11.9 Type 2 diabetes mellitus without complications
CPT/HCPCS: 71010; 80053; 82550; 82553; 83735; 83880; 84484; 85025; 85610; 85730; 93005; 94760; 96374; 96375; 96376; J1644